=== PATIENT | female | born 1955 | race Caucasian/White ===

== ENCOUNTER 2018-12-12 17:12 | Inpatient (IN) | payer BC, OTHER ==
[~2018-12-12] VITALS: Ht 160 cm; Wt 53.9 kg
[~2018-12-12 17:12] MED LIST: ACE3T PO; ALEN1TAB32 PO; BACL10TA PO; BUTA1TAB PO; HYDR25TA4 PO; PANT1INJ3 PO
[2018-12-12] MEDS ORDERED: MORPHINE SULFATE 4 MG/ML SYR/VIAL IV ONE (20:00)
[2018-12-12] MEDS ORDERED: ONDANSETRON HCL 4 MG/2 ML VIAL IV ONE (20:00)
[2018-12-12 21:11] LABS: Basophils # (auto) 0 uL; Basophils % (auto) 0.5 % (0.0-2.0); Eosinophils # (auto) 0 uL; Eosinophils % (auto) 0.3 % (0.0-7.0); Hematocrit 38.9 % (36.0-46.0); Hemoglobin 13.1 g/dL (12.2-16.2); Lymphocytes % (auto) 12.3 % (10.0-50.0); Mean Corpuscular Hemoglobin 33.6 pg (28.0-32.0); Mean Corpuscular Hgb Conc. 33.7 g/dL (32.0-36.0); Mean Corpuscular Volume 99.6 fL (80.0-100.0); Monocytes # (auto) 0.5 uL; Monocytes % (auto) 5.9 % (0.0-12.0); Neutrophils # (auto) 6.4 uL; Platelet Count (auto) 222 10^3/uL (140-450); Red Blood Cells 3.91 10^6/uL (4.0-5.20); Red Cell Distribution Width 15.3 % (11.8-14.3); White Blood Cell 7.9 10^3/uL (4.4-10.8)
[2018-12-12 21:24] LABS: Albumin 3.1 g/dL (3.4-5.0); Calcium 8.4 mg/dL (8.5-10.1); Potassium 3.1 mmol/L (3.5-5.1)
[2018-12-12 21:30] LABS: BUN/Creatinine Ratio 13.6; Bilirubin, Total 0.3 mg/dL (0.2-1.0); Total Protein 7.5 g/dL (6.4-8.2)
[2018-12-12 22:15] LABS: Urine Bacteria MANY /hpf (None Seen); Urine Blood 1+ /uL (Negative); Urine Hyaline Cast FEW /lpf (0 - 2); Urine Mucus FEW (None Seen); Urine Specific Gravity 1.028 (1.001-1.035); Urine WBC 15 /hpf (0 - 5)
[2018-12-12] MEDS ORDERED: ACETAMINOPHEN 325 MG TAB PO PRN (23:15)
[2018-12-12] MEDS ORDERED: TEMAZEPAM 15 MG CAP PO PRN (23:15)
[2018-12-12] MEDS ORDERED: LEVOFLOXACIN 500MG 100 ML IV ONE (23:30)
[2018-12-13] VITALS (7 sets, daily range): BP systolic 104–151; BP diastolic 68–88
[2018-12-13] MEDS: ONDANSETRON HCL 4 MG/2 ML VIAL IV PRN ×3 (00:34→22:54)
[2018-12-13] MEDS: MORPHINE SULFATE 4 MG/ML SYR/VIAL IV PRN ×6 (00:34→22:45)
--- NOTE | 2018-12-13 01:30 | NUR ---
MS admit from ER VISHAL TRINIDAD admitted to MS. Patient oriented to LALO MELÉNDEZ OCA, primary RN, unit, room, bed, and unit policies regarding patient care and visiting hours. Patient weighed by bedscale and encouraged to call if they need something. All questions and concerns addressed, patient verbalized understanding. Bed in lowest locked position, call light within reach, side rails up x2, fall precautions in place. Will continue to monitor Q1hr and PRN.
[2018-12-13] MEDS: HYDROcodone-ACET 5/325MG TAB PO PRN ×5 (02:02→21:11)
[2018-12-13] MEDS ORDERED: CARI350T22 PO (06:13)
[2018-12-13 07:29] LABS: Basophils # (auto) 0.1 uL; Basophils % (auto) 0.8 % (0.0-2.0); Eosinophils # (auto) 0.1 uL; Eosinophils % (auto) 0.7 % (0.0-7.0); Hemoglobin 12.2 g/dL (12.2-16.2); Lymphocytes # (auto) 1.4 uL; Lymphocytes % (auto) 18.5 % (10.0-50.0); Mean Corpuscular Hemoglobin 33.4 pg (28.0-32.0); Mean Corpuscular Hgb Conc. 33.8 g/dL (32.0-36.0); Mean Corpuscular Volume 98.8 fL (80.0-100.0); Monocytes # (auto) 0.6 uL; Monocytes % (auto) 8.3 % (0.0-12.0); Neutrophils # (auto) 5.4 uL; Neutrophils % (auto) 71.7 % (37.0-80.0); Nucleated Red Blood Cells % 0.1 %; Platelet Count (auto) 203 10^3/uL (140-450); Red Blood Cells 3.64 10^6/uL (4.0-5.20); Red Cell Distribution Width 15.4 % (11.8-14.3); White Blood Cell 7.5 10^3/uL (4.4-10.8)
[2018-12-13 07:52] LABS: BUN/Creatinine Ratio 16.4; Calcium 8.2 mg/dL (8.5-10.1); Potassium 3.5 mmol/L (3.5-5.1)
[2018-12-13] MEDS: ASPirin 81 mg TAB PO SCH (09:09)
[2018-12-13] MEDS: FAMOTIDINE 20 MG TAB PO SCH ×2 (09:10→21:10)
[2018-12-13] MEDS: ENOXAPARIN SOD 40 MG/0.4 ML SYRINGE SC SCH (09:10)
--- NOTE | 2018-12-13 16:05 | NUR ---
DR. HUBER AT BEDSIDE. PLAN TO TRANSFER TO [facility].
--- NOTE | 2018-12-13 19:24 | NUR ---
CARE ENDORSED TO WOLFGANG BEE.
--- NOTE | 2018-12-13 19:41 | NUR ---
Opening Shift Note Assumed care of patient, awake and alert. No S/S of distress/SOB or pain. Pt is currently laying in bed with the rails up x2. The bed is locked in the lowest position and the call light is within reach. Instructed on POC and to call for assist as needed. Pt has a 20ga IV in the right forearm that flushes without discomfort. Moon in place with bag below bladder. Will continue to monitor.
[2018-12-13] MEDS: LEVOFLOXACIN 500MG 100 ML IV SCH (21:10)
[2018-12-14] MEDS: HYDROcodone-ACET 5/325MG TAB PO PRN ×6 (01:15→21:31)
[2018-12-14] MEDS: MORPHINE SULFATE 4 MG/ML SYR/VIAL IV PRN ×6 (02:56→23:25)
[2018-12-14] MEDS: ONDANSETRON HCL 4 MG/2 ML VIAL IV PRN ×6 (02:56→23:25)
[2018-12-14 05:15] VITALS: BP 135/95
[2018-12-14 06:56] LABS: Eosinophils # (auto) 0.1 uL; Lymphocytes # (auto) 1.2 uL; Monocytes # (auto) 0.6 uL; Monocytes % (auto) 8.3 % (0.0-12.0); White Blood Cell 6.7 10^3/uL (4.4-10.8)
[2018-12-14 06:59] LABS: Basophils # (auto) 0.1 uL; Basophils % (auto) 0.8 % (0.0-2.0); Hematocrit 37.1 % (36.0-46.0); Hemoglobin 12.6 g/dL (12.2-16.2); Lymphocytes % (auto) 18.3 % (10.0-50.0); Mean Corpuscular Hemoglobin 33.8 pg (28.0-32.0); Mean Corpuscular Volume 99.5 fL (80.0-100.0); Neutrophils # (auto) 4.8 uL; Neutrophils % (auto) 71.6 % (37.0-80.0); Nucleated Red Blood Cells % 0.1 %; Platelet Count (auto) 207 10^3/uL (140-450); Red Blood Cells 3.73 10^6/uL (4.0-5.20); Red Cell Distribution Width 15.3 % (11.8-14.3)
[2018-12-14 07:08] LABS: Potassium 3.9 mmol/L (3.5-5.1)
[2018-12-14 07:15] LABS: BUN/Creatinine Ratio 18.2; Calcium 8.2 mg/dL (8.5-10.1)
--- NOTE | 2018-12-14 07:42 | NUR ---
OPENING NOTE Assumed care of patient from NOC RNThomas. Patient awake and alert with no S/S of distress/SOB. States left hip pain 6/10 on adult pain scale, will administer prn pain medications as ordered. Moon catheter intact, patent and hung below bed. Instructed on POC and to call for assist PRN, verbalized understanding. Bed in lowest, locked position with side rails up x2. Fall precautions in place and call light within reach. Will continue to monitor for changes Q1hr and PRN.
[2018-12-14 09:00] VITALS: BP 133/82
[2018-12-14] MEDS: FAMOTIDINE 20 MG TAB PO SCH ×2 (09:38→21:30)
[2018-12-14] MEDS: ASPirin 81 mg TAB PO SCH (09:38)
[2018-12-14] MEDS: ENOXAPARIN SOD 40 MG/0.4 ML SYRINGE SC SCH (09:39)
[2018-12-14 13:00] VITALS: BP 115/83
--- NOTE | 2018-12-14 15:19 | NUR ---
TRANSFER ORDER FAXED TO [facility] FOR TRANSFER TO [facility]. [facility] [phone]
[2018-12-14 16:51] VITALS: BP 129/80
--- NOTE | 2018-12-14 19:22 | NUR ---
CLOSING NOTE Endorsed care of patient to NOC Thomas BEE.
[2018-12-14] MEDS: LEVOFLOXACIN 500MG 100 ML IV SCH (21:31)
[2018-12-14 23:13] VITALS: BP 121/75
--- NOTE | 2018-12-14 23:40 | NUR ---
Pt transferred to [facility] Spoke with Ghislaine at 2117. She stated that they had a bed for her and she would be going to room 238 and to arrange transport with [facility]. Called [facility] to set up transport at 2144. model and pattern supervisor time was given for 2329. Called in report to Venus BEE at 2244. Pt given paperwork and wristband removed. Picked up by [facility] at 2340. Pt had no ss of distress at this time.
== END 2018-12-14 23:40 | disposition short-term general hospital (02) | DRG 280 ==
LOC: EDBD 17:12 → ER 17:14 → MERGE 23:03 → WEST WING 23:03
PROVIDERS: ADMIT Nurse Practitioner; ATTEND Internal Medicine
DX: I21.A1 Myocardial infarction type 2 (principal); S72.142A Displaced intertrochanteric fracture of left femur, initial encounter for closed fracture; N39.0 Urinary tract infection, site not specified; E87.6 Hypokalemia; Z88.8 Allergy status to other drugs, medicaments and biological substances; Z91.048 Other nonmedicinal substance allergy status; F17.210 Nicotine dependence, cigarettes, uncomplicated; J44.9 Chronic obstructive pulmonary disease, unspecified; W18.39XA Other fall on same level, initial encounter; Y93.89 Activity, other specified; Y92.89 Other specified places as the place of occurrence of the external cause; Y99.8 Other external cause status; Z90.49 Acquired absence of other specified parts of digestive tract; Z90.710 Acquired absence of both cervix and uterus
CPT/HCPCS: 36415; 51702; 71101; 80048; 80053; 81001; 83735; 84484; 85025; 85379; 93925; 93970; 94761; 96365; 96375; G0378; J1956; J2405

== ENCOUNTER 2022-03-19 22:56 | Inpatient (IN) | payer BC, MEDICARE ==
[~2022-03-19] VITALS: Ht 152.4 cm; Wt 52.6 kg
[~2022-03-19 22:56] MED LIST changes: -ALEN1TAB32 PO; +ALEN70TA74 PO; +CARI350T22 PO
[2022-03-20] MEDS ORDERED: fentaNYL CITRATE 100 MCG/2 ML VL IV ONE (00:15)
[2022-03-20] MEDS ORDERED: SODIUM CHLORIDE 0.9% 1,000 ML IV ONE (00:30)
[2022-03-20 02:16] LABS: Basophils # (auto) 0 10 ^3/uL (0-0.2); Basophils % (auto) 0.1 % (0.0-2.0); Eosinophils # (auto) 0 10 ^3/uL (0-0.8); Hematocrit 31.3 % (36.0-46.0); Hemoglobin 10.1 g/dL (12.2-16.2); Lymphocytes # (auto) 0.6 10 ^3/uL (0.4-5.4); Lymphocytes % (auto) 6.4 % (10.0-50.0); Mean Corpuscular Hemoglobin 29.3 pg (28.0-32.0); Mean Corpuscular Hgb Conc. 32.4 g/dL (32.0-36.0); Mean Corpuscular Volume 90.4 fL (80.0-100.0); Monocytes # (auto) 0.4 10 ^3/uL (0-1.3); Monocytes % (auto) 4.5 % (0.0-12.0); Neutrophils # (auto) 7.8 10 ^3/uL (1.6-8.6); Red Blood Cells 3.46 10^6/uL (4.0-5.20); Red Cell Distribution Width 19.5 % (11.8-14.3); White Blood Cell 8.8 10^3/uL (4.4-10.8)
[2022-03-20 02:35] LABS: BUN/Creatinine Ratio 15.4; Calcium 8.3 mg/dL (8.5-10.1); Magnesium 1.7 mg/dL (1.6-2.6); Potassium 3.8 mmol/L (3.5-5.1)
[2022-03-20 02:44] LABS: Bilirubin, Total 0.2 mg/dL (0.2-1.0); Total Protein 6.9 g/dL (6.4-8.2)
[2022-03-20] MEDS ORDERED: PROPOFOL 10 MG/ML 20 ML IV ONE (02:52)
[2022-03-20] MEDS ORDERED: PROPOFOL 100 ML IV ONE (02:58)
[2022-03-20] MEDS ORDERED: fentaNYL CITRATE 100 MCG/2 ML VL ONE (04:22)
[2022-03-20] MEDS ORDERED: ACETAMINOPHEN 325 MG TAB PO PRN (05:45)
[2022-03-20] MEDS ORDERED: DOCUSATE SOD 100 MG CAP PO PRN (05:45)
[2022-03-20] MEDS ORDERED: HYDROcodone-ACET 5/325MG TAB PO ONE (05:45)
[2022-03-20] MEDS ORDERED: SODIUM CHLORIDE 0.9% 1,000 ML IV SCH (05:45)
[2022-03-20] MEDS: MORPHINE SULFATE INJ 2 MG/ml SYRG IV PRN ×4 (08:27→20:11)
[2022-03-20] MEDS: HYDROcodone-ACET 5/325MG TAB PO PRN ×3 (09:12→22:13)
[2022-03-20] MEDS: SODIUM CHLORIDE 0.9% 1,000 ML IV SCH (14:02)
[2022-03-20 15:00] VITALS: BP 140/66
[2022-03-20 15:32] LABS: Urine Bacteria NONE SEEN /hpf (None Seen); Urine Blood Negative /uL (Negative); Urine Specific Gravity 1.017 (1.001-1.035); Urine WBC 5 /hpf (0 - 5)
[2022-03-20 17:00] VITALS: BP 140/66
[2022-03-20 17:23] VITALS: BP 140/66
[2022-03-20] MEDS ORDERED: IPRAAER6 IN (18:10)
[2022-03-20] MEDS: IPRATROPIUM BROM 0.5 MG/2.5ML INH SOL NEB PRN (18:30)
[2022-03-20 18:31] VITALS: BP 140/66
[2022-03-20 20:38] LABS: INR 1.05 (0.9-1.15); Partial Thromboplastin Time 29.6 sec (23.6-33.0)
[2022-03-20 22:00] VITALS: BP 126/63
[2022-03-21] MEDS: MORPHINE SULFATE INJ 2 MG/ml SYRG IV PRN ×5 (00:22→19:03)
[2022-03-21] MEDS: IPRATROPIUM BROM 0.5 MG/2.5ML INH SOL NEB PRN (00:38)
[2022-03-21] MEDS: HYDROcodone-ACET 5/325MG TAB PO PRN ×4 (02:15→21:04)
[2022-03-21] MEDS: SODIUM CHLORIDE 0.9% 1,000 ML IV SCH ×3 (04:34→16:50)
[2022-03-21 05:23] VITALS: BP 128/70
[2022-03-21 07:18] LABS: Basophils # (auto) 0.1 10 ^3/uL (0-0.2); Basophils % (auto) 1.4 % (0.0-2.0); Eosinophils # (auto) 0.1 10 ^3/uL (0-0.8); Eosinophils % (auto) 2.5 % (0.0-7.0); Hematocrit 34.6 % (36.0-46.0); Hemoglobin 11.2 g/dL (12.2-16.2); Lymphocytes # (auto) 0.4 10 ^3/uL (0.4-5.4); Lymphocytes % (auto) 7.9 % (10.0-50.0); Mean Corpuscular Hgb Conc. 32.5 g/dL (32.0-36.0); Mean Corpuscular Volume 89.2 fL (80.0-100.0); Monocytes # (auto) 0.4 10 ^3/uL (0-1.3); Monocytes % (auto) 6.3 % (0.0-12.0); Neutrophils # (auto) 4.5 10 ^3/uL (1.6-8.6); Neutrophils % (auto) 81.9 % (37.0-80.0); Nucleated Red Blood Cells % 0.1 %; Red Blood Cells 3.88 10^6/uL (4.0-5.20); White Blood Cell 5.5 10^3/uL (4.4-10.8)
[2022-03-21 07:41] LABS: Red Cell Distribution Width 20.3 % (11.8-14.3)
[2022-03-21 07:50] LABS: Anion Gap 8 (5-15); Blood Urea Nitrogen 3 mg/dL (7-18); Calcium 7.8 mg/dL (8.5-10.1); Carbon Dioxide 20 mmol/L (21-32); Chloride 110 mmol/L (98-107); Glucose 98 mg/dL (74-106); Potassium 3.8 mmol/L (3.5-5.1); Sodium 138 mmol/L (136-145)
[2022-03-21 07:51] LABS: BUN/Creatinine Ratio 7.9; GFR African American 217 mL/min; GFR Non-African American 180 mL/min
[2022-03-21 09:00] VITALS: BP 161/54
[2022-03-21 13:00] VITALS: BP 140/74
[2022-03-21 17:00] VITALS: BP 154/75
[2022-03-21 22:00] VITALS: BP 131/71
[2022-03-22] MEDS: MORPHINE SULFATE INJ 2 MG/ml SYRG IV PRN ×5 (03:10→20:38)
[2022-03-22 05:00] VITALS: BP 145/83
[2022-03-22] MEDS: HYDROcodone-ACET 5/325MG TAB PO PRN ×5 (05:11→22:48)
[2022-03-22 06:29] LABS: BUN/Creatinine Ratio 6.1; Calcium 8.2 mg/dL (8.5-10.1)
[2022-03-22 06:31] LABS: Basophils # (auto) 0 10 ^3/uL (0-0.2); Basophils % (auto) 0.7 % (0.0-2.0); Eosinophils # (auto) 0.1 10 ^3/uL (0-0.8); Eosinophils % (auto) 1.3 % (0.0-7.0); Hematocrit 31.3 % (36.0-46.0); Hemoglobin 10.1 g/dL (12.2-16.2); Lymphocytes # (auto) 1.1 10 ^3/uL (0.4-5.4); Lymphocytes % (auto) 19.6 % (10.0-50.0); Mean Corpuscular Hemoglobin 28.8 pg (28.0-32.0); Mean Corpuscular Hgb Conc. 32.3 g/dL (32.0-36.0); Mean Corpuscular Volume 89.2 fL (80.0-100.0); Monocytes # (auto) 0.5 10 ^3/uL (0-1.3); Monocytes % (auto) 8.4 % (0.0-12.0); Nucleated Red Blood Cells % 0.1 %; Red Blood Cells 3.51 10^6/uL (4.0-5.20); Red Cell Distribution Width 19.5 % (11.8-14.3); White Blood Cell 5.7 10^3/uL (4.4-10.8)
[2022-03-22 06:41] LABS: Potassium 2.9 mmol/L (3.5-5.1)
[2022-03-22] MEDS ORDERED: POTASSIUM CHL 20MEQ/100ML 100 ML IV SCH (07:00)
[2022-03-22 09:24] VITALS: BP 144/90
[2022-03-22] MEDS ORDERED: OXY5T GT (09:52)
[2022-03-22] MEDS ORDERED: POTASSIUM EFFERVESENT TAB 25 MEQ GT ONE (10:00)
[2022-03-22] MEDS ORDERED: POTASSIUM CHLORIDE 40 MEQ, LIDOCAINE 1% (LOCAL ANESTH.) 4 ML in SODIUM CHL 0.9% 250 ML IV ONE (10:00)
[2022-03-22] MEDS ORDERED: POTASSIUM EFFERVESENT TAB 25 MEQ PO ONE (10:15)
[2022-03-22] MEDS: ONDANSETRON HCL 4 MG/2 ML VIAL IV PRN ×2 (12:26→22:48)
[2022-03-22 13:24] VITALS: BP 133/85
[2022-03-22 17:04] VITALS: BP 140/87
[2022-03-22 22:00] VITALS: BP 133/77
[2022-03-23] MEDS: MORPHINE SULFATE INJ 2 MG/ml SYRG IV PRN ×3 (00:56→09:57)
[2022-03-23] MEDS: ONDANSETRON HCL 4 MG/2 ML VIAL IV PRN ×3 (00:57→14:36)
[2022-03-23] MEDS: HYDROcodone-ACET 5/325MG TAB PO PRN ×3 (03:29→12:53)
[2022-03-23 05:00] VITALS: BP 133/68
[2022-03-23 08:00] VITALS: BP 150/84
[2022-03-23 09:00] VITALS: BP 149/83
[2022-03-23 13:40] VITALS: BP 123/70
[2022-03-23 13:43] VITALS: BP 150/84
== END 2022-03-23 17:07 | disposition home or self-care (01) | DRG 563 ==
LOC: ER 22:56 → EDBD 22:56 → OVERFLOW 03-20 05:39 → TELE 03-20 05:40 → TELE-CENTR 03-20 15:22
PROVIDERS: ADMIT Hospitalist; ATTEND Internal Medicine Pulmonary Disease
PROC: 0PSJXZZ Reposition Left Radius, External Approach (ICD-10-PCS; principal; 2022-03-20)
PROC: 0PSLXZZ Reposition Left Ulna, External Approach (ICD-10-PCS; 2022-03-20)
DX: S52.202A Unspecified fracture of shaft of left ulna, initial encounter for closed fracture (principal); S32.502A Unspecified fracture of left pubis, initial encounter for closed fracture; S22.32XA Fracture of one rib, left side, initial encounter for closed fracture; E46 Unspecified protein-calorie malnutrition; M62.82 Rhabdomyolysis; S52.502A Unspecified fracture of the lower end of left radius, initial encounter for closed fracture; S00.83XA Contusion of other part of head, initial encounter; D64.9 Anemia, unspecified; Z20.822 Contact with and (suspected) exposure to COVID-19; F17.210 Nicotine dependence, cigarettes, uncomplicated; I10 Essential (primary) hypertension; F03.90 Unspecified dementia, unspecified severity, without behavioral disturbance, psychotic disturbance, mood disturbance, and anxiety; W18.39XA Other fall on same level, initial encounter; Y93.89 Activity, other specified; Z90.49 Acquired absence of other specified parts of digestive tract; Y92.89 Other specified places as the place of occurrence of the external cause; Y99.8 Other external cause status; Z68.22 Body mass index [BMI] 22.0-22.9, adult; Z90.710 Acquired absence of both cervix and uterus; Z88.8 Allergy status to other drugs, medicaments and biological substances
CPT/HCPCS: 36415; 70450; 71045; 73100; 80048; 80053; 81001; 82550; 83735; 84132; 84484; 85025; 85610; 85730; 93005; 94640; 96361; 96374; 97110; 97163; 97530; 99152; 99291; G0378; J2001; J2405; J2704; J3480

== ENCOUNTER 2022-09-03 21:03 | Emergency (ER) | payer MEDICARE ==
[~2022-09-03] VITALS: Ht 162.6 cm; Wt 47.7 kg
[~2022-09-03 21:03] MED LIST changes: +IPRAAER6 IN; +OXY5T GT
[2022-09-03 21:29] VITALS: BP 154/88
[2022-09-03] MEDS ORDERED: HYDROcodone-ACET 10/325MG TAB PO ONE (21:30)
[2022-09-03] MEDS ORDERED: BUPIVACAINE 0.25% INJ 50ML VIAL IJ ONE (23:15)
[2022-09-03] MEDS ORDERED: LIDOCAINE 2%HCL (LOCAL ANESTH.) INJ 10ml MDV ONE (23:29)
[2022-09-04 01:03] LABS: Basophils # (auto) 0 10 ^3/uL (0-0.2); Basophils % (auto) 0.2 % (0.0-2.0); Eosinophils # (auto) 0 10 ^3/uL (0-0.8); Eosinophils % (auto) 0.1 % (0.0-7.0); Hematocrit 35.7 % (36.0-46.0); Hemoglobin 11.4 g/dL (12.2-16.2); Lymphocytes # (auto) 1.5 10 ^3/uL (0.4-5.4); Lymphocytes % (auto) 9.8 % (10.0-50.0); Mean Corpuscular Hemoglobin 29.2 pg (28.0-32.0); Mean Corpuscular Hgb Conc. 31.9 g/dL (32.0-36.0); Mean Corpuscular Volume 91.7 fL (80.0-100.0); Monocytes # (auto) 0.4 10 ^3/uL (0-1.3); Monocytes % (auto) 2.6 % (0.0-12.0); Neutrophils % (auto) 87.3 % (37.0-80.0); Nucleated Red Blood Cells % 0.4 %; Red Blood Cells 3.89 10^6/uL (4.0-5.20); Red Cell Distribution Width 18.3 % (11.8-14.3); White Blood Cell 14.9 10^3/uL (4.4-10.8)
[2022-09-04] MEDS ORDERED: MORPHINE SULFATE INJ 2 MG/ml SYRG IV PRN (01:15)
[2022-09-04] MEDS ORDERED: HYDROcodone-ACET 5/325MG TAB PO PRN (01:15)
[2022-09-04] MEDS ORDERED: ACETAMINOPHEN 325 MG TAB PO PRN (01:15)
[2022-09-04] MEDS ORDERED: ONDANSETRON HCL 4 MG/2 ML VIAL IV PRN (01:15)
[2022-09-04 01:18] LABS: Albumin 3.2 g/dL (3.4-5.0); BUN/Creatinine Ratio 29.8; Calcium 9.1 mg/dL (8.5-10.1); Potassium 3.7 mmol/L (3.5-5.1)
[2022-09-04 01:20] LABS: Bilirubin, Total 0.5 mg/dL (0.2-1.0); Total Protein 7.5 g/dL (6.4-8.2)
[2022-09-04] MEDS ORDERED: LEVOTHYROXINE SODIUM 25 MCG TAB PO SCH (07:00)
[2022-09-04] MEDS ORDERED: CLOPIDOGREL BISULFATE 75 MG TAB PO SCH (10:00)
[2022-09-04] MEDS ORDERED: PANTOPRAZOLE 40 MG TAB PO SCH (10:00)
[2022-09-04] MEDS ORDERED: LISINOPRIL 10 MG TAB PO SCH (10:00)
[2022-09-04] MEDS ORDERED: ATORVASTATIN 20 MG TAB PO SCH (22:00)
== END 2022-09-04 02:35 | disposition left against medical advice (07) ==
LOC: ER 21:03 → EDBD 21:03 → ER 09-04 02:35
DX: S52.591A Other fractures of lower end of right radius, initial encounter for closed fracture (principal); R62.7 Adult failure to thrive; J45.909 Unspecified asthma, uncomplicated; F17.210 Nicotine dependence, cigarettes, uncomplicated; Z90.49 Acquired absence of other specified parts of digestive tract; Z98.890 Other specified postprocedural states; Z90.710 Acquired absence of both cervix and uterus; Z88.6 Allergy status to analgesic agent; Z88.1 Allergy status to other antibiotic agents; Z79.899 Other long term (current) drug therapy; W19.XXXA Unspecified fall, initial encounter; Y93.89 Activity, other specified; Y92.89 Other specified places as the place of occurrence of the external cause; Y99.8 Other external cause status
CPT/HCPCS: 25605; 36415; 73100; 80053; 85025; 99284; J2001; J3490

== ENCOUNTER 2022-12-19 20:36 | Emergency (ER) | payer MEDICARE ==
[~2022-12-19] VITALS: Ht 152.4 cm; Wt 45.3 kg
[2022-12-19] MEDS ORDERED: ONDANSETRON HCL 4 MG/2 ML VIAL IV ONE ×2 (22:00→23:30)
[2022-12-19] MEDS ORDERED: HYDROmorphone HCL 2 MG/ML VL/or syr IV ONE ×2 (22:00→23:30)
[2022-12-19] MEDS ORDERED: SODIUM CHLORIDE 0.9% 500 ML IV ONE (22:00)
[2022-12-19 22:15] LABS: Basophils # (auto) 0 10 ^3/uL (0-0.2); Basophils % (auto) 0.3 % (0.0-2.0); Eosinophils # (auto) 0 10 ^3/uL (0-0.8); Eosinophils % (auto) 0.2 % (0.0-7.0); Hematocrit 37.8 % (36.0-46.0); Hemoglobin 12.4 g/dL (12.2-16.2); Lymphocytes # (auto) 1.1 10 ^3/uL (0.4-5.4); Lymphocytes % (auto) 7.4 % (10.0-50.0); Mean Corpuscular Hemoglobin 30.8 pg (28.0-32.0); Mean Corpuscular Hgb Conc. 32.7 g/dL (32.0-36.0); Mean Corpuscular Volume 94.3 fL (80.0-100.0); Monocytes % (auto) 6.5 % (0.0-12.0); Neutrophils # (auto) 13.1 10 ^3/uL (1.6-8.6); Neutrophils % (auto) 85.6 % (37.0-80.0); Nucleated Red Blood Cells % 0.1 %; Red Blood Cells 4.01 10^6/uL (4.0-5.20); Red Cell Distribution Width 17.4 % (11.8-14.3); White Blood Cell 15.3 10^3/uL (4.4-10.8)
[2022-12-19 22:32] LABS: Albumin 2.5 g/dL (3.4-5.0); BUN/Creatinine Ratio 24.1 (10.0-20.0); Calcium 8.4 mg/dL (8.5-10.1); Potassium 3.4 mmol/L (3.5-5.1)
[2022-12-19 22:33] LABS: Lactic Acid w/Reflex 2.6 mmol/L (0.4-2.0)
[2022-12-19 22:35] LABS: Bilirubin, Total 0.3 mg/dL (0.2-1.0); Total Protein 7.1 g/dL (6.4-8.2)
[2022-12-19] MEDS ORDERED: IOHEXOL 350 MG/ML 100ML IJ ONE (22:45)
[2022-12-19] MEDS ORDERED: CLINDAMYCIN 600MG IV 50 ML IV ONE (23:00)
[2022-12-20] MEDS ORDERED: HEPARIN DRIP/D5W 100UNITS/ML 250 ML IV SCH
[2022-12-20] MEDS ORDERED: ASPirin 81 mg TAB PO ONE (00:15)
[2022-12-20 00:29] LABS: INR 1.16 (0.9-1.15); Partial Thromboplastin Time 33.1 sec (24.6-33.4)
[2022-12-20] MEDS ORDERED: ONDANSETRON HCL 4 MG/2 ML VIAL IV ONE (01:45)
[2022-12-20] MEDS ORDERED: HYDROmorphone HCL 2 MG/ML VL/or syr IV ONE (01:45)
[2022-12-20 02:34] VITALS: BP 116/74
== END 2022-12-20 02:51 | disposition short-term general hospital (02) ==
LOC: ER 20:36 → EDBD 20:36 → ER 12-20 02:51
DX: T82.392A Other mechanical complication of femoral arterial graft (bypass), initial encounter (principal); I70.92 Chronic total occlusion of artery of the extremities; J45.909 Unspecified asthma, uncomplicated; F17.210 Nicotine dependence, cigarettes, uncomplicated; R06.02 Shortness of breath; Z88.1 Allergy status to other antibiotic agents; Z90.49 Acquired absence of other specified parts of digestive tract; Z90.710 Acquired absence of both cervix and uterus
CPT/HCPCS: 36415; 71045; 73706; 80053; 83605; 83880; 84484; 85025; 85610; 85730; 93005; 96361; 96365; 96366; 96367; 96375; 96376; 99285; J1170; J1644; J2405; J3490; J7030; Q9967